=== PATIENT | male | born 1955 | race Two or more races ===

== ENCOUNTER 2019-10-15 15:21 | Inpatient (IN) | payer BC ==
[~2019-10-15] VITALS: Ht 152.4 cm; Wt 110.4 kg
[2019-10-15] MEDS ORDERED: ASPIRIN 81MG TABLET PO ONE (19:45)
[2019-10-15] MEDS ORDERED: VISCOUS LIDOCAINE 2% 15 ML UDC PO ONE (19:45)
[2019-10-15] MEDS ORDERED: MAGNESIUM/ALUMINUM HYDROXIDE/SIMETHICONE 30ML UDC PO ONE (19:45)
[2019-10-15] MEDS ORDERED: ASPIRIN 81MG TABLET ONE (20:31)
[2019-10-15 20:58] LABS: BASOPHILS % 0.4 % (0.0-2.0); CHLORIDE 109 mEq/L (98-107); EOSINOPHILS % 1.5 % (0.0-5.0); HEMATOCRIT. 48.9 % (42.0-52.0); HEMOGLOBIN. 15.8 g/dL (14.0-18.0); LYMPHOCYTES % 17.5 % (20.0-50.0); MEAN CORPUSCULAR VOLUME 86.3 fL (80.0-94.0); MONOCYTES % 3.1 % (2.0-8.0); NEUTROPHILS % 77.5 % (40.0-76.0); PLATELET 249 x1000/uL (130-400); RED BLOOD CELL COUNT 5.66 mill/uL (4.7-6.1); RED CELL DISTRIBUTION WIDTH 15.3 % (11.6-14.6)
[2019-10-15] MEDS ORDERED: HEPARIN 5000 UNITS/ML VIAL IV ONE (21:45)
[2019-10-15] MEDS ORDERED: HEPARIN 25,000 UNITS PREMIX 500 ML IV ONE (21:45)
[2019-10-15 22:43] LABS: PROTHROMBIN TIME 10.4 sec (9.6-11.0)
[2019-10-15] MEDS ORDERED: MORPHINE SULFATE 4 MG/ML CPJ (NOT FOR IM USE) IV ONE (23:15)
[2019-10-16] VITALS (25 sets, daily range): BP systolic 128–170; BP diastolic 65–110
[2019-10-16] MEDS ORDERED: CONTAINER EMPTY IV NR ×2 (01:00→02:30)
[2019-10-16] MEDS ORDERED: ALTEPLASE 100MG/VIAL IV NR (01:00)
[2019-10-16] MEDS ORDERED: ALTEPLASE IV NR ×2 (01:00→02:30)
[2019-10-16] MEDS ORDERED: LABETALOL 5MG/ML SYR 20 MG/4 ML SYRINGE IV ONE (01:15)
[2019-10-16] MEDS ORDERED: CARVEDILOL 3.125 MG TABLET PO ONE (08:00)
[2019-10-16 08:17] LABS: BASOPHILS % 0.6 % (0.0-2.0); HEMOGLOBIN. 15.6 g/dL (14.0-18.0); LYMPHOCYTES % 21.4 % (20.0-50.0); MEAN CORPUSCULAR HEMOGLOBIN 28.1 pg (28.0-32.0); MEAN CORPUSCULAR VOLUME 84.9 fL (80.0-94.0); MEAN PLATELET VOLUME 7.8 fl (7.4-10.4); MONOCYTES % 8.6 % (2.0-8.0); NEUTROPHILS % 66.4 % (40.0-76.0); PLATELET 243 x1000/uL (130-400); RED BLOOD CELL COUNT 5.54 mill/uL (4.7-6.1); RED CELL DISTRIBUTION WIDTH 15.1 % (11.6-14.6)
[2019-10-16 08:25] LABS: CHLORIDE 109 mEq/L (98-107)
[2019-10-16 08:27] LABS: PARTIAL THROMBOPLASTIN TIME 25.9 sec (23.4-31.0); PROTHROMBIN TIME 11.1 sec (9.6-11.0)
[2019-10-16 08:32] LABS: PHOSPHORUS 3.4 mg/dL (2.5-4.9)
[2019-10-16] MEDS ORDERED: ASPIRIN/SOD BICARB/CITRIC ACID 324MG TAB EFF ONE (08:43)
[2019-10-16] MEDS ORDERED: IOHEXOL-300 100 ML BOTTLE ONE (08:43)
[2019-10-16] MEDS ORDERED: IODIXANOL 320MG/ML 100 ML BOTTLE IV ONE ×2 (08:44→09:26)
[2019-10-16] MEDS ORDERED: LIDOCAINE HCL 1% 20ML VIAL (Pyxis) INJ ONE ×2 (08:44→17:30)
[2019-10-16] MEDS ORDERED: MIDAZOLAM HCL 2 MG/2 ML VIAL ONE (08:45)
[2019-10-16] MEDS ORDERED: FENTANYL CITRATE/PF 50MCG/ML 2ML VIAL ONE ×2 (08:45→17:52)
[2019-10-16 08:47] LABS: CREATINE KINASE 6467 IU/L (39-308)
[2019-10-16 08:49] LABS: CREATINE KINASE MB FRACTION 946.7 ng/mL (0.5-3.6)
[2019-10-16] MEDS ORDERED: TICAGRELOR 90 MG TABLET PO SCH (09:00)
[2019-10-16] MEDS ORDERED: SODIUM CHLORIDE 0.45% 1,000 ML IV ONE (09:45)
[2019-10-16] MEDS ORDERED: ACETAMINOPHEN 325MG TABLET PO PRN (09:45)
[2019-10-16] MEDS ORDERED: ONDANSETRON HCL 4MG/2ML INJ IV PRN (09:45)
[2019-10-16] MEDS ORDERED: CLOPIDOGREL 75MG TABLET PO ONE (09:45)
[2019-10-16] MEDS ORDERED: ALBUTEROL (0.083%) 2.5MG/3ML NEB HHN PRN (12:15)
[2019-10-16] MEDS: NITROGLYCERIN OINT 1GM/INCH UDPKT TD SCH (12:25)
[2019-10-16] MEDS ORDERED: MORPHINE SULFATE 2 MG/ML CPJ (NOT FOR IM USE) IV PRN ×3 (13:00→18:30)
[2019-10-16] MEDS ORDERED: NITROGLYCERIN 50MCG/ML 10ML VIAL (CATH LAB) IV ONE (13:10)
[2019-10-16] MEDS ORDERED: NICARDIPINE 100MCG/ML 10ML VIAL (CATH LAB) IV ONE (13:10)
[2019-10-16] MEDS ORDERED: PHENYLEPHRINE 100MCG/ML 10ML VIAL (CATH LAB) IV ONE (13:10)
[2019-10-16] MEDS ORDERED: HEPARIN SODIUM 1,000 UNIT/1ML VIAL IV ONE (13:10)
[2019-10-16] MEDS ORDERED: SODIUM CHLORIDE 0.9% 250 ML IV ONE ×2 (15:30→18:30)
[2019-10-16] MEDS ORDERED: DOPAMINE 400MG/250ML PREMIX 250 ML IV ONE ×2 (16:15)
[2019-10-16] MEDS ORDERED: DOBUTAMINE 250MG PREMIX 250 ML IV ONE ×2 (16:15)
[2019-10-16] MEDS ORDERED: PHENYLEPHRINE 10 MG in DEXT 5% WATER 249 ML IV PRN ×2 (16:30→16:45)
[2019-10-16 16:59] LABS: BASOPHILS % 0.3 % (0.0-2.0); EOSINOPHILS % 0.4 % (0.0-5.0); HEMATOCRIT. 48.1 % (42.0-52.0); HEMOGLOBIN. 15.7 g/dL (14.0-18.0); LYMPHOCYTES % 12.5 % (20.0-50.0); MONOCYTES % 8.9 % (2.0-8.0); NEUTROPHILS % 77.9 % (40.0-76.0); PLATELET 243 x1000/uL (130-400); RED BLOOD CELL COUNT 5.59 mill/uL (4.7-6.1); RED CELL DISTRIBUTION WIDTH 15.4 % (11.6-14.6)
[2019-10-16 17:00] LABS: INR 1.1; PROTHROMBIN TIME 11.4 sec (9.6-11.0)
[2019-10-16 17:34] LABS: CREATINE KINASE MB FRACTION 527.2 ng/mL (0.5-3.6)
[2019-10-16] MEDS ORDERED: ATROPINE SULFATE 1MG/10ML SYR IV PRN (17:48)
[2019-10-16] MEDS ORDERED: MAGNESIUM 4 G PREMIX 100 ML IV NR (20:00)
[2019-10-16] MEDS: MORPHINE SULFATE 2 MG/ML CPJ (NOT FOR IM USE) IV PRN (20:09)
[2019-10-16] MEDS: ATORVASTATIN CALCIUM 20MG TABLET PO SCH (20:25)
[2019-10-16] MEDS: CARVEDILOL 3.125 MG TABLET PO SCH (20:25)
[2019-10-16] MEDS ORDERED: ZOLPIDEM TARTRATE 5MG TABLET PO PRN (21:00)
[2019-10-16] MEDS ORDERED: ATORVASTATIN CALCIUM 40MG TABLET PO SCH (21:00)
[2019-10-16] MEDS ORDERED: KETOROLAC 30MG/ML VIAL IV PRN (21:15)
[2019-10-16] MEDS ORDERED: HYDRALAZINE 20MG/ML VIAL IV PRN (21:15)
[2019-10-16] MEDS ORDERED: MORPHINE SULFATE 4 MG/ML CPJ (NOT FOR IM USE) IV PRN (22:15)
[2019-10-17] VITALS (47 sets, daily range): BP systolic 92–148; BP diastolic 41–95
[2019-10-17] MEDS: ACETAMINOPHEN 325MG TABLET PO PRN (00:09)
[2019-10-17] MEDS ORDERED: CLOPIDOGREL 75MG TABLET PO NR (00:45)
[2019-10-17] MEDS ORDERED: ASPIRIN 81MG TABLET PO NR (00:45)
[2019-10-17] MEDS: MORPHINE SULFATE 2 MG/ML CPJ (NOT FOR IM USE) IV PRN (06:13)
[2019-10-17 06:25] LABS: BASOPHILS % 0.3 % (0.0-2.0); EOSINOPHILS % 0.1 % (0.0-5.0); HEMATOCRIT. 43.9 % (42.0-52.0); HEMOGLOBIN. 14.6 g/dL (14.0-18.0); LYMPHOCYTES % 10.8 % (20.0-50.0); MEAN CORPUSCULAR HEMOGLOBIN 28.5 pg (28.0-32.0); MEAN CORPUSCULAR VOLUME 85.4 fL (80.0-94.0); MEAN PLATELET VOLUME 8.2 fl (7.4-10.4); MONOCYTES % 10.4 % (2.0-8.0); NEUTROPHILS % 78.4 % (40.0-76.0); PLATELET 225 x1000/uL (130-400); RED BLOOD CELL COUNT 5.14 mill/uL (4.7-6.1); RED CELL DISTRIBUTION WIDTH 14.9 % (11.6-14.6)
[2019-10-17 06:34] LABS: CHLORIDE 108 mEq/L (98-107)
[2019-10-17 06:36] LABS: CREATINE KINASE MB FRACTION 187.6 ng/mL (0.5-3.6)
[2019-10-17 06:57] LABS: CREATINE KINASE 2327 IU/L (39-308)
[2019-10-17] MEDS: CLOPIDOGREL 75MG TABLET PO SCH (08:31)
[2019-10-17] MEDS: PANTOPRAZOLE 40MG DR TABLET PO SCH (08:31)
[2019-10-17] MEDS: LOSARTAN POTASSIUM 25 MG TABLET PO SCH (08:31)
[2019-10-17] MEDS: CARVEDILOL 3.125 MG TABLET PO SCH ×2 (08:32→21:19)
[2019-10-17] MEDS ORDERED: ALBUMIN HUMAN 25GM/500ML (5%) IV NR (09:00)
[2019-10-17] MEDS ORDERED: MAGNESIUM 4 G PREMIX 100 ML IV SCH (09:00)
[2019-10-17] MEDS: NITROGLYCERIN OINT 1GM/INCH UDPKT TD SCH ×4 (12:27→23:56)
[2019-10-17] MEDS ORDERED: LISI40TA4 PO (12:48)
[2019-10-17] MEDS: ASPIRIN 81MG EC TABLET PO SCH (17:59)
[2019-10-17] MEDS: ATORVASTATIN CALCIUM 20MG TABLET PO SCH (21:18)
[2019-10-18] VITALS (18 sets, daily range): BP systolic 96–150; BP diastolic 54–89
[2019-10-18] MEDS: ACETAMINOPHEN 325MG TABLET PO PRN (00:12)
[2019-10-18 05:35] LABS: BASOPHILS % 0.4 % (0.0-2.0); EOSINOPHILS % 3.4 % (0.0-5.0); HEMATOCRIT. 40.1 % (42.0-52.0); MEAN CORPUSCULAR HEMOGLOBIN 27.8 pg (28.0-32.0); MEAN CORPUSCULAR VOLUME 85.9 fL (80.0-94.0); MEAN PLATELET VOLUME 8.1 fl (7.4-10.4); MONOCYTES % 11.9 % (2.0-8.0); NEUTROPHILS % 68.3 % (40.0-76.0); PLATELET 195 x1000/uL (130-400); RED BLOOD CELL COUNT 4.67 mill/uL (4.7-6.1); RED CELL DISTRIBUTION WIDTH 14.8 % (11.6-14.6)
[2019-10-18 05:45] LABS: CHLORIDE 110 mEq/L (98-107)
[2019-10-18 05:53] LABS: HDL CHOLESTEROL 37 mg/dL (40-59)
[2019-10-18 05:57] LABS: LDL CHOLESTEROL 43 mg/dL (5-100)
[2019-10-18] MEDS: PANTOPRAZOLE 40MG DR TABLET PO SCH (08:35)
[2019-10-18] MEDS: ASPIRIN 81MG EC TABLET PO SCH ×2 (08:35→18:00)
[2019-10-18] MEDS: LOSARTAN POTASSIUM 25 MG TABLET PO SCH (08:36)
[2019-10-18] MEDS: CARVEDILOL 3.125 MG TABLET PO SCH ×2 (08:36→21:10)
[2019-10-18] MEDS: CLOPIDOGREL 75MG TABLET PO SCH (08:45)
[2019-10-18] MEDS: ATORVASTATIN CALCIUM 20MG TABLET PO SCH (21:10)
[2019-10-19] VITALS (19 sets, daily range): BP systolic 91–132; BP diastolic 55–95
[2019-10-19] MEDS: NITROGLYCERIN OINT 1GM/INCH UDPKT TD SCH ×3 (05:19→12:00)
[2019-10-19] MEDS: CARVEDILOL 3.125 MG TABLET PO SCH (08:23)
[2019-10-19] MEDS: ASPIRIN 81MG EC TABLET PO SCH (08:23)
[2019-10-19] MEDS: LOSARTAN POTASSIUM 25 MG TABLET PO SCH (08:26)
[2019-10-19] MEDS: PANTOPRAZOLE 40MG DR TABLET PO SCH (08:26)
[2019-10-19] MEDS: CLOPIDOGREL 75MG TABLET PO SCH (08:27)
[2019-10-19] MEDS ORDERED: SODIUM CHLORIDE 0.9% 250 ML IV ONE (11:45)
[2019-10-19 12:07] LABS: BASOPHILS % 0.6 % (0.0-2.0); EOSINOPHILS % 9.4 % (0.0-5.0); HEMOGLOBIN. 13.5 g/dL (14.0-18.0); LYMPHOCYTES % 18.1 % (20.0-50.0); MEAN CORPUSCULAR HEMOGLOBIN 28.8 pg (28.0-32.0); MEAN CORPUSCULAR VOLUME 85.5 fL (80.0-94.0); MEAN PLATELET VOLUME 8.3 fl (7.4-10.4); MONOCYTES % 13.2 % (2.0-8.0); NEUTROPHILS % 58.7 % (40.0-76.0); PLATELET 222 x1000/uL (130-400); RED BLOOD CELL COUNT 4.68 mill/uL (4.7-6.1); RED CELL DISTRIBUTION WIDTH 14.9 % (11.6-14.6)
[2019-10-19 12:20] LABS: CHLORIDE 109 mEq/L (98-107)
== END 2019-10-19 15:00 | disposition home or self-care (01) | DRG 247 ==
LOC: EDSEX 15:21 → ER 15:21 → ORIP 10-16 00:57 → SUPCPDRO 10-16 12:25 → CVICU 10-16 18:09 → 3WST 10-16 18:19 → CVICU 10-16 18:39
PROVIDERS: ADMIT Ophthalmology; ATTEND Ophthalmology
PROC: 027034Z Dilation of Coronary Artery, One Artery with Drug-eluting Intraluminal Device, Percutaneous Approach (ICD-10-PCS; principal; 2019-10-16)
PROC: 4A023N7 Measurement of Cardiac Sampling and Pressure, Left Heart, Percutaneous Approach (ICD-10-PCS; 2019-10-16)
PROC: B215YZZ Fluoroscopy of Left Heart using Other Contrast (ICD-10-PCS; 2019-10-16)
PROC: B2111ZZ Fluoroscopy of Multiple Coronary Arteries using Low Osmolar Contrast (ICD-10-PCS; 2019-10-16)
PROC: 3E03317 Introduction of Other Thrombolytic into Peripheral Vein, Percutaneous Approach (ICD-10-PCS; 2019-10-16)
PROC: 0W9D30Z Drainage of Pericardial Cavity with Drainage Device, Percutaneous Approach (ICD-10-PCS; 2019-10-16)
DX: I21.4 Non-ST elevation (NSTEMI) myocardial infarction (principal); I31.4 Cardiac tamponade; I31.3 Pericardial effusion (noninflammatory); Z68.42 Body mass index [BMI] 45.0-49.9, adult; I50.22 Chronic systolic (congestive) heart failure; I25.10 Atherosclerotic heart disease of native coronary artery without angina pectoris; E78.5 Hyperlipidemia, unspecified; F17.200 Nicotine dependence, unspecified, uncomplicated; I11.0 Hypertensive heart disease with heart failure; J98.4 Other disorders of lung; E78.00 Pure hypercholesterolemia, unspecified; E66.01 Morbid (severe) obesity due to excess calories; Z79.02 Long term (current) use of antithrombotics/antiplatelets
CPT/HCPCS: 33010; 36415; 71045; 80048; 80053; 80061; 80076; 82248; 82465; 82550; 82553; 82962; 83036; 83605; 83735; 83880; 84100; 84443; 84484; 85025; 85347; 92928; 93005; 93306; 93308; 93458; 94640; 96365; 99291; C1769; C1874; C1887; J1250; J1265; J1644; J1885; J2250; J2270; J2370; J2997; J3010; J3475; J3490; J7060; P9041; Q9967